=== PATIENT | female | born 1950 | race African-American/Black ===

== ENCOUNTER 2017-11-02 12:03 | Emergency (ER) | payer MEDICARE, OTHER ==
[~2017-11-02] VITALS: Ht 162.6 cm; Wt 60.0 kg
[2017-11-02 12:28] VITALS: BP 139/67
[2017-11-02] MEDS ORDERED: SODIUM CHLORIDE 0.9% 500 ML IV ONE (12:32)
[2017-11-02 12:59] LABS: CHLORIDE 104 mEq/L (98-107)
[2017-11-02 13:00] LABS: BASOPHILS % 0.3 % (0.0-2.0); EOSINOPHILS % 0.9 % (0.0-5.0); HEMATOCRIT. 27.5 % (36.0-48.0); HEMOGLOBIN. 8.6 g/dL (12.0-16.0); LYMPHOCYTES % 15.2 % (20.0-50.0); MEAN CORPUSCULAR HEMOGLOBIN 23.7 pg (28.0-32.0); MEAN CORPUSCULAR VOLUME 75.4 fL (81.0-99.0); MEAN PLATELET VOLUME 7.6 fl (7.4-10.4); MONOCYTES % 9.8 % (2.0-8.0); NEUTROPHILS % 73.8 % (40.0-76.0); PLATELET 336 x1000/uL (130-400); RED BLOOD CELL COUNT 3.65 mill/uL (4.2-5.4); RED CELL DISTRIBUTION WIDTH 19.1 % (11.6-14.6)
[2017-11-02 13:03] LABS: ETHANOL BLOOD < 10 mg/dL
[2017-11-02 13:04] LABS: CLARITY URINE CLEAR (CLEAR); COLOR URINE YELLOW (YELLOW); KETONES URINE NEGATIVE (NEGATIVE); LEUKOCYTE ESTERASE URINE NEGATIVE (NEGATIVE); NITRITE URINE NEGATIVE (NEGATIVE); OCCULT BLOOD URINE TRACE (NEGATIVE); PROTEIN URINE NEGATIVE (NEGATIVE); SPECIFIC GRAVITY URINE 1.024 (1.005-1.030); UROBILINOGEN URINE 0.2 E.U./dL (0.2-1.0)
[2017-11-02 13:06] LABS: AMMONIA 20 uMol/L (<32)
[2017-11-02 13:22] LABS: *BARBITURATES SCREEN URINE NEGATIVE (NEGATIVE); *COCAINE SCREEN URINE PRESUMTIVE POSITIVE (NEGATIVE); CANNABINOID URINE SCREEN NEGATIVE (NEGATIVE); METHADONE URINE SCREEN NEGATIVE (NEGATIVE); OPIATES URINE SCREEN NEGATIVE (NEGATIVE); PHENCYCLIDINE URINE SCREEN NEGATIVE (NEGATIVE)
[2017-11-02 13:23] LABS: *AMPHETAMINES SCREEN URINE NEGATIVE (NEGATIVE); *BENZODIAZEPINES SCREEN URINE NEGATIVE (NEGATIVE)
== END 2017-11-02 13:09 | disposition left against medical advice (07) ==
LOC: ER 12:14
DX: F14.10 Cocaine abuse, uncomplicated (principal); R41.82 Altered mental status, unspecified; R53.1 Weakness; E86.0 Dehydration; D50.9 Iron deficiency anemia, unspecified; R79.89 Other specified abnormal findings of blood chemistry; D72.810 Lymphocytopenia; R94.31 Abnormal electrocardiogram [ECG] [EKG]; R03.0 Elevated blood-pressure reading, without diagnosis of hypertension; Z88.8 Allergy status to other drugs, medicaments and biological substances
CPT/HCPCS: 36415; 80053; 80305; 81003; 82140; 84484; 85025; 93005; 99285; G0482; J7040

== ENCOUNTER 2018-03-05 13:02 | Inpatient (IN) | payer MEDICARE, OTHER ==
[~2018-03-05] VITALS: Ht 162.6 cm; Wt 65.8 kg
[2018-03-05 14:55] LABS: HEMATOCRIT. 28.6 % (36.0-48.0); HEMOGLOBIN. 8.9 g/dL (12.0-16.0); MEAN CORPUSCULAR HEMOGLOBIN 25.2 pg (28.0-32.0); MEAN CORPUSCULAR VOLUME 81.4 fL (81.0-99.0); MEAN PLATELET VOLUME 7.4 fl (7.4-10.4); PLATELET 277 x1000/uL (130-400); RED BLOOD CELL COUNT 3.52 mill/uL (4.2-5.4); RED CELL DISTRIBUTION WIDTH 22.4 % (11.6-14.6)
[2018-03-05 15:01] LABS: CHLORIDE 110 mEq/L (98-107)
[2018-03-05 15:08] LABS: INR 1.1; PROTHROMBIN TIME 10.7 sec (9.1-11.1)
[2018-03-05] MEDS: LORAZEPAM 2MG/ML CPJ IM PRN (15:23)
[2018-03-05 15:34] LABS: PLATELET ESTIMATE NORMAL
[2018-03-05] MEDS ORDERED: LORAZEPAM 2MG/ML CPJ IV ONE ×2 (15:45→16:45)
[2018-03-05] MEDS ORDERED: LORAZEPAM 2MG/ML CPJ IV STA (17:16)
[2018-03-05] MEDS ORDERED: HALOPERIDOL LACTATE 5MG/ML VIAL IM STA (17:16)
[2018-03-05 21:00] VITALS: BP 201/111
[2018-03-05] MEDS ORDERED: GUAIFENESIN 200MG/10ML SUGAR FREE UDC PO PRN (21:30)
[2018-03-05] MEDS ORDERED: MAGNESIUM/ALUMINUM HYDROXIDE/SIMETHICONE 30ML UDC PO PRN (21:30)
[2018-03-05] MEDS ORDERED: ACETAMINOPHEN 325MG TABLET PO PRN (21:30)
[2018-03-05] MEDS ORDERED: NA PHOS,M-B/NA PHOS,DI-BA ENEMA 118ML PR PRN (21:30)
[2018-03-05] MEDS ORDERED: HYDROCODONE/ACETAMINOPHEN 5/325MG TABLET PO PRN (21:30)
[2018-03-05] MEDS ORDERED: HYDROMORPHONE HCL/PF 2MG/ML CPJ IV PRN (21:30)
[2018-03-05] MEDS ORDERED: ONDANSETRON HCL 4MG/2ML INJ IV PRN (21:30)
[2018-03-05] MEDS ORDERED: IPRATROPIUM/ALBUTEROL 0.5-3(2.5)MG/3ML NEB INH PRN (21:30)
[2018-03-05] MEDS ORDERED: DOCUSATE SODIUM 100MG CAPSULE PO PRN (21:30)
[2018-03-05] MEDS: LORAZEPAM 2MG/ML CPJ IV PRN (21:48)
[2018-03-05] MEDS: CLONIDINE 0.1MG TABLET PO PRN (21:55)
[2018-03-05 22:28] VITALS: BP 116/69
[2018-03-05] MEDS ORDERED: SODIUM CHLORIDE 0.45% 1,000 ML IV SCH (22:30)
[2018-03-05 23:53] LABS: CHLORIDE 109 mEq/L (98-107)
[2018-03-06] VITALS: BP 140/79
[2018-03-06 04:00] VITALS: BP 139/82
[2018-03-06 06:33] LABS: BASOPHILS % 0.3 % (0.0-2.0); EOSINOPHILS % 0.5 % (0.0-5.0); HEMATOCRIT. 36.1 % (36.0-48.0); LYMPHOCYTES % 28.1 % (20.0-50.0); MEAN CORPUSCULAR HEMOGLOBIN 25.1 pg (28.0-32.0); MEAN CORPUSCULAR VOLUME 82.8 fL (81.0-99.0); MEAN PLATELET VOLUME 7.8 fl (7.4-10.4); MONOCYTES % 12.1 % (2.0-8.0); PLATELET 275 x1000/uL (130-400); RED BLOOD CELL COUNT 4.36 mill/uL (4.2-5.4); RED CELL DISTRIBUTION WIDTH 22.4 % (11.6-14.6)
[2018-03-06] MEDS: LORAZEPAM 2MG/ML CPJ IV PRN (06:41)
[2018-03-06 06:42] LABS: CHLORIDE 107 mEq/L (98-107)
[2018-03-06 06:50] LABS: LDL CHOLESTEROL 65 mg/dL (5-100)
[2018-03-06 08:00] VITALS: BP 149/73
[2018-03-06] MEDS: ASPIRIN 81MG EC TABLET PO SCH (08:43)
[2018-03-06] MEDS: ENOXAPARIN 40MG/0.4ML SYR SUBCUT SCH (08:43)
[2018-03-06] MEDS: LORAZEPAM 2MG/ML CPJ IM PRN (09:28)
[2018-03-06 11:34] LABS: HDL CHOLESTEROL 146 mg/dL (40-59)
[2018-03-06] MEDS ORDERED: POTASSIUM CHLORIDE 20MEQ TABLET SR PO SCH (12:00)
[2018-03-06 12:25] VITALS: BP 138/83
[2018-03-06] MEDS ORDERED: POTASSIUM CHLORIDE INJ 40 MEQ in DEXT 5% WATER 500 ML IV SCH (12:30)
[2018-03-06] MEDS: HALOPERIDOL LACTATE 5MG/ML VIAL IM PRN (13:49)
[2018-03-06] MEDS: CLONIDINE 0.1MG TABLET PO PRN (15:18)
[2018-03-06 16:35] VITALS: BP 163/105
[2018-03-06 20:00] VITALS: BP 166/73
[2018-03-07] VITALS (7 sets, daily range): BP systolic 138–211; BP diastolic 78–176
[2018-03-07] MEDS: HALOPERIDOL LACTATE 5MG/ML VIAL IM PRN (01:53)
[2018-03-07] MEDS: CLONIDINE 0.1MG TABLET PO PRN (06:28)
[2018-03-07] MEDS: ENOXAPARIN 40MG/0.4ML SYR SUBCUT SCH (09:00)
[2018-03-07] MEDS: ASPIRIN 81MG EC TABLET PO SCH (09:00)
== END 2018-03-07 11:59 | DRG 115 ==
LOC: ER 13:17 → EDBEDREQ 17:34 → 8WST 19:17 → ENRESERV 20:00
PROVIDERS: ADMIT Internal Medicine; ATTEND Internal Medicine
DX: S02.609A Fracture of mandible, unspecified, initial encounter for closed fracture (principal); G93.41 Metabolic encephalopathy; E46 Unspecified protein-calorie malnutrition; J44.9 Chronic obstructive pulmonary disease, unspecified; S00.03XA Contusion of scalp, initial encounter; E78.00 Pure hypercholesterolemia, unspecified; W18.39XA Other fall on same level, initial encounter; E86.0 Dehydration; I10 Essential (primary) hypertension; Z88.9 Allergy status to unspecified drugs, medicaments and biological substances; Y93.89 Activity, other specified; Y92.89 Other specified places as the place of occurrence of the external cause; Y99.8 Other external cause status; Z68.24 Body mass index [BMI] 24.0-24.9, adult
CPT/HCPCS: 36415; 70486; 80048; 80061; 84484; 93005; 96372; 96374; 96376; 99285; C1893; J1630; J1650; J2060; J3480; J7050; J7060; J7620

== ENCOUNTER 2018-07-18 13:39 | Emergency (ER) | payer MEDICARE, MEDICAID ==
[~2018-07-18] VITALS: Ht 170.2 cm; Wt 61.0 kg
[2018-07-18 15:23] LABS: BASOPHILS % 0.1 % (0.0-2.0); EOSINOPHILS % 0.2 % (0.0-5.0); HEMATOCRIT. 35.3 % (36.0-48.0); HEMOGLOBIN. 10.8 g/dL (12.0-16.0); LYMPHOCYTES % 10.2 % (20.0-50.0); MEAN CORPUSCULAR HEMOGLOBIN 26.6 pg (28.0-32.0); MEAN PLATELET VOLUME 8.4 fl (7.4-10.4); MONOCYTES % 4.6 % (2.0-8.0); NEUTROPHILS % 84.9 % (40.0-76.0); PLATELET 148 x1000/uL (130-400); RED BLOOD CELL COUNT 4.06 mill/uL (4.2-5.4); RED CELL DISTRIBUTION WIDTH 19.8 % (11.6-14.6)
[2018-07-18 16:25] LABS: CHLORIDE 112 mEq/L (98-107)
[2018-07-18 16:31] LABS: ETHANOL BLOOD < 10 mg/dL
[2018-07-18 17:00] LABS: CLARITY URINE CLEAR (CLEAR); COLOR URINE YELLOW (YELLOW); KETONES URINE NEGATIVE (NEGATIVE); LEUKOCYTE ESTERASE URINE NEGATIVE (NEGATIVE); NITRITE URINE NEGATIVE (NEGATIVE); OCCULT BLOOD URINE NEGATIVE (NEGATIVE); PROTEIN URINE NEGATIVE (NEGATIVE); SPECIFIC GRAVITY URINE 1.025 (1.005-1.030); UROBILINOGEN URINE 0.2 E.U./dL (0.2-1.0)
[2018-07-18 17:11] LABS: *AMPHETAMINES SCREEN URINE NEGATIVE (NEGATIVE); *BARBITURATES SCREEN URINE NEGATIVE (NEGATIVE); *BENZODIAZEPINES SCREEN URINE PRESUMTIVE POSITIVE (NEGATIVE); *COCAINE SCREEN URINE NEGATIVE (NEGATIVE)
[2018-07-18 17:12] LABS: CANNABINOID URINE SCREEN NEGATIVE (NEGATIVE); METHADONE URINE SCREEN NEGATIVE (NEGATIVE); OPIATES URINE SCREEN NEGATIVE (NEGATIVE); PHENCYCLIDINE URINE SCREEN NEGATIVE (NEGATIVE)
[2018-07-18 19:58] VITALS: BP 108/64
== END 2018-07-18 22:00 | disposition home or self-care (01) ==
LOC: ER 13:39
DX: R41.82 Altered mental status, unspecified (principal); F03.90 Unspecified dementia, unspecified severity, without behavioral disturbance, psychotic disturbance, mood disturbance, and anxiety; D64.9 Anemia, unspecified; J44.9 Chronic obstructive pulmonary disease, unspecified; E78.00 Pure hypercholesterolemia, unspecified; I10 Essential (primary) hypertension
CPT/HCPCS: 36415; 71045; 80305; 80320; 82962; 84484; 93005; 99284; G0480